=== PATIENT | female | born 1960 | race African-American/Black ===

== ENCOUNTER → 2017-06-05 | Outpatient (CLI) | payer BC ==
[~2017-06-05] MED LIST: COZAAR 25 MG TA25 M1 PO; ESTRACE2 MG PO; VENLAFAXIN75 MG/1 T2 PO
== END ==
LOC: RAD 08:57
DX: J40 Bronchitis, not specified as acute or chronic (principal)

== ENCOUNTER → 2018-06-27 | Outpatient (CLI) | payer OTHER | LOC: RAD 08:15 | DX: Z12.31 Encounter for screening mammogram for malignant neoplasm of breast (principal) ==

== ENCOUNTER → 2019-07-03 | Outpatient (CLI) | payer OTHER | LOC: RAD 09:21 | DX: Z12.31 Encounter for screening mammogram for malignant neoplasm of breast (principal) ==

== ENCOUNTER → 2020-12-27 | Outpatient (CLI) | payer OTHER | LOC: BC 08:04 | PROVIDERS: ATTEND Nurse Practitioner | DX: Z12.31 Encounter for screening mammogram for malignant neoplasm of breast (principal) ==